=== PATIENT | female | born 1945 | race Caucasian/White ===

== ENCOUNTER → 2020-07-09 09:57 | Outpatient (REF) | payer MEDICARE, OTHER, SELFPAY | LOC: ANHLAB 09:57 | PROVIDERS: PCP Internal Medicine; Visit Provider Nurse Practitioner | DX: L90.5 Scar conditions and fibrosis of skin (principal); L98.499 Non-pressure chronic ulcer of skin of other sites with unspecified severity | CPT/HCPCS: 88305 ==

== ENCOUNTER 2020-08-14 09:12 | Outpatient (CLI) | payer MEDICARE, OTHER, SELFPAY ==
--- NOTE | ~2020-08-14 | CT_ITS ---
EXAMINATION: CT chest wo con EXAM DATE: 08/14/2020 09:56 INDICATION: Solitary pulmonary nodule. TECHNIQUE: Spiral CT of the chest without contrast. Axial, coronal and sagittal images were reviewe d. Coronal maximum intensity pixel images of chest reviewed. The dose-length product (DLP) for this examination was 65.76 mGy-cm. The exposure was tailored according to patient size (auto mA exposure control), and iterative reconstruction (ASIR) was used as additional dose reduction technique. Ba rison is made to prior examination from 11/02/2018. FINDINGS: Scattered bilateral pulmonary nodules, upper lobe predominant stable or slightly smaller i n size, consistent with postinfectious residua. Large prevascular calcification from prior calcified lymphadenopathy. There is severe emphysema and moderate hyperinflation. No new or suspicious pulmonar y nodules. There are no pleural or pericardial effusions. Tracheobronchial tree is patent. There is no mediastinal, hilar or axillary lymphadenopathy. There is no pneumothorax. Heart normal in size. There is moderate coronary arterial calcification, arterial sclerosis. There are cholecystec jorden clips. Liver and splenic granulomas. There is thoracic spondylosis without osteoblastic or oste olytic lesions identified. IMPRESSION: 1. Moderate to severe emphysema. 2. Stable post infectious residua. Reviewed, dictated and finalized at location A.
== END 2020-08-14 09:13 | disposition home or self-care (01) ==
PROVIDERS: PCP Internal Medicine; Visit Provider Nurse Practitioner Family
DX: R91.1 Solitary pulmonary nodule (principal); J43.9 Emphysema, unspecified
CPT/HCPCS: 71250

== ENCOUNTER 2024-08-11 21:12 | Observation (INO) | payer MEDICARE, SELFPAY ==
--- NOTE | ~2024-08-11 | CT_ITS ---
EXAMINATION: CT chest abdomen pelvis w con DATE: 08/11/2024 22:55 INDICATION: increasing cough, N/V . TECHNIQUE: Computed tomography (CT) of the chest, abdomen, and pelvis was performed with 100 mL Omnip aque-350 intravenous contrast. Automated exposure control and iterative reconstruction technique were employed. The dose-length product was 369.00 mGy-cm. COMPARISON: None FINDINGS: CHEST: Thoracic aorta: No significant dilation. No dissection. Moderate arch calcification Lung parenchyma and airways: Innumerable calcified granulomas. Severe emphysematous change with archi tectural distortion and scarring. Subsegmental consolidation in the right medial lung base. Smaller a reas of subsegmental consolidation in the peripheral right and left lower lobes and right middle lobe . Stable focal scarring in the right apex. Patent airways. Thoracic inlet, axillae and chest wall: No thyroid or soft tissue mass. No axillary lymphadenopathy. Mediastinum: Calcified prevascular lymph node. Dilated central pulmonary arteries as can be seen with pulmonary arterial hypertension. Heart and pericardium: Normal heart size. No pericardial effusion. Coronary artery calcifications: Moderate. Pleura: No effusion or mass. Thoracic bones: No acute osseous finding in the chest. ABDOMEN/PELVIS: Liver: Several subcentimeter hypodensities, too small to characterize, likely represent cysts or josephine ngiomas. Biliary/Gallbladder: Gallbladder is absent. No bile duct dilation. Pancreas: No mass or duct dilation. Spleen: Extensive granulomatous calcifications. Adrenals:No mass. Kidneys: No suspicious mass, obstructing stone, or hydronephrosis. GI tract: Moderate distal esophageal and gastric wall edema. No small or large bowel dilation. Normal appendix. Diverticulosis without diverticulitis. Mesentery/Peritoneum: No ascites, mass, or free air. Retroperitoneum: No mass Atherosclerotic abdominal aortic and/or arterial calcifications. Pelvis: Pelvic organs are within normal limits. 1.7 cm simple appearing right ovarian cyst. Soft Tissues: Soft tissues and body wall unremarkable. Abdominopelvic bones: No acute osseous finding in the abdomen/pelvis. IMPRESSION: Scattered subsegmental right middle lobe and bilateral lower lobe airspace opacities, may reflect ate lectasis or infectious/inflammatory foci, overlying a background of severe emphysematous change. The prior chest radiograph findings corresponded to stable granulomas and scarring. Moderate esophagitis/gastritis. Reviewed, dictated and finalized at location K. IMPRESSION: Scattered subsegmental right middle lobe and bilateral lower lobe airspace opac ities, may reflect atelectasis or infectious/inflammatory foci, overlying a gem kground of severe emphysematous change. The prior chest radiograph findings corresponded to stable granulomas and scarr ing. Moderate esophagitis/gastritis.
--- NOTE | ~2024-08-11 | XR_ITS ---
EXAMINATION: XR chest 2V Exam Date/Time: 08/11/2024 22:10 CDT HISTORY: cough, tachycardia Comparison: 08/09/2014. RESULT: Lines, tubes, and devices: Cholecystectomy clips. Lungs and pleura: Irregular 1.7 cm nodular opacity in the right upper lobe. Granulomatous calcificat ion. Emphysematous change Cardiomediastinal silhouette: Stable. Calcified lymph nodes. Other: No acute osseous or upper abdominal finding. IMPRESSION: No acute cardiopulmonary process. Irregular 1.7 cm right upper lobe opacity may represent a pulmonary nodule or focus of infection. Con supervisor cutting department CT of the chest for further evaluation. Reviewed, dictated and finalized at location K. IMPRESSION: No acute cardiopulmonary process. Irregular 1.7 cm right upper lobe opacity may represent a pulmonary nodule or f ocus of infection. Consider CT of the chest for further evaluation.
[2024-08-11 21:10] VITALS: BP 156/70; PULSE 124; RESP 13; TEMP 36.7; O2SAT 92
[2024-08-11 21:19] VITALS: PULSE 124
--- NOTE | 2024-08-11 21:32 | ED.GENADULT ---
HPI - General Adult General Chief complaint: Weakness <Miguel Boone PA-C - Last Filed: 08/12/24 03:25> Stated complaint: weakness,n/v <Miguel Boone PA-C - Last Filed: 08/12/24 03:25> Time Seen by Provider: 08/11/24 21:18 <Miguel Boone PA-C - Last Filed: 08/12/24 03:25> Source: patient <CAPO Santacruz Last Filed: 08/12/24 03:25> Mode of arrival: ambulatory <CAPO Santacruz Last Filed: 08/12/24 03:25> Limitations: no limitations <Miguel Boone PA-C - Last Filed: 08/12/24 03:25> History of Present Illness HPI narrative: This is a 78-year-old female with PMH of COPD, IBS who presents to the ED for chief complaint of generalized weakness and N/V for the past 2-3 hours. Patient reports that she and her family returned from [place] today. She last ate around 4:00 p.m. and had salads with, spaghetti with meat sauce. States that she started to feel ill when she got home and has had several episodes of vomiting. Endorses 1 episode of loose stools but no GI bleeding symptoms. Denies chest pain or shortness of breath. Does endorse some mildly increasing cough recently but no fevers, chills. Does not have any abdominal pain or urinary symptoms. <CAPO Santacruz Last Filed: 08/12/24 03:25> Related Data Home medications: Home Medications Medication Instructions Recorded Confirmed acetaminophen 325 mg tablet 650 mg PO PRN PRN PAIN OR FEVER 08/12/24 08/12/24 (Tylenol) cetirizine 5 mg tablet 5 mg PO QHS PRN ALLERGIES 08/12/24 08/12/24 <CAPO Santacruz Last Filed: 08/12/24 03:25> Allergies/adverse reactions: Allergies Allergy/AdvReac Type Severity Reaction Status Date / Time adhesive tape Allergy Mild SKIN BLEEDS Verified 08/12/24 03:54 codeine Allergy Unknown Other Verified 08/12/24 03:54 montelukast Allergy Unknown Other Verified 08/12/24 03:54 Quinolones Allergy Unknown AVELOX Verified 08/12/24 03:54 Sulfa (Sulfonamide Allergy Unknown Hives Verified 08/12/24 03:54 Antibiotics) <Miguel Boone PA-C - Last Filed: 08/12/24 03:25> Review of Systems Review of Systems: All systems as dictated in HPI <Miguel Boone PA-C - Last Filed: 08/12/24 03:25> [facility] Past Medical History Medical History: Medical History Allergies Asthma <CAPO Santacruz Last Filed: 08/12/24 03:25> Surgical History Surgical History: Surgical History History of adenoidectomy History of tonsillectomy <Miguel Boone PA-C - Last Filed: 08/12/24 03:25> Family History Family History: Family History Father Family history of chronic obstructive pulmonary disease Mother Family history of aortic aneurysm Family history of coronary artery disease Other Family history of heart disease in male family member before age 55 Family history of kidney disease Hypertension <CAPO Santacruz Last Filed: 08/12/24 03:25> Social History Social History: Social History Smoking status: Former smoker Tobacco type: cigarettes Smoking end date: 11/15/02 Alcohol intake: never Substance use: never Substance use type: does not use Do You Feel Safe in your Home?: Yes Lack of Transportation: No Lack of Food: Never True Current Housing: I Have Housing Concerned About Future Housing: No Difficulty Paying Gas/Electric Bills: No Difficulty Paying for Meds: No Currently Unemployed: No Education: Decline to Answer Difficulty w/ Childcare or Family Care: No Occupation/Education: retired Gender identity (if verbalized by the patient): Female Sexual Orientation (if Verbalized by the Patient): Straight or Heterosexual Spiritual care concerns: No <Miguel Boone PA-C - [place] [facility]
--- NOTE | 2024-08-11 21:33 | ECG_ITS ---
Test Date: 2024-08-11 21:17:00 Measurements Intervals [place] Rate: 123 P: 71 IA: 139 QRS: 44 QRSD: 82 T: 78 QT: 337 QTc: 482 Interpretive Statements SINUS TACHYCARDIA LOW QRS VOLTAGE IN PRECORDIAL LEADS NONSPECIFIC ST & T-WAVE ABNORMALITY- DIFFUSE LEADS BASELINE ARTIFACT- I, II, III, AVR, AVL, AVF, V3 ABNORMAL ECG No previous ECG available for comparison Electronically Signed On 08-12-2024 09:15:06 CDT by Kevin To D.O.
[2024-08-11] MEDS: SODIUM CHLORIDE 0.9% IV 1,000 ML 999 ML IV CONT ×2 (21:37→23:03)
[2024-08-11 21:58] LABS: Basophils Absolute Auto 0.1 K/mm3 (0.0-0.1); Basophils Percent Auto 0.4 % (0.2-1.2); Eosinophils Absolute Auto 0.1 K/mm3 (0-0.3); Eosinophils Percent Auto 0.4 % (0-4.4); Hematocrit 41.5 % (37.0-47.0); Hemoglobin 13.5 g/dL (12.0-15.0); Immature Granulocyte Absolute 0.07 K/mm3 (0.00-0.031); Immature Granulocyte Percent A 0.4 % (0-0.5); Lymphocytes Absolute Auto 0.92 K/mm3 (0.9-3.2); Lymphocytes Percent Auto 5.4 % (18.3-44.2); Mean Corpuscular HGB Conc 32.5 g/dl (32-36); Mean Corpuscular Hemoglobin 29.5 pg (26-34); Mean Corpuscular Volume 90.8 fl (80-100); Mean Platelet Volume 9.5 fl (7.4-10.4); Monocytes Absolute Auto 0.9 K/mm3 (0.1-0.6); Monocytes Percent Auto 5.2 % (2.6-8.5); Neutrophils Percent Auto 88.2 % (45.5-73.1); Platelet Count Result 290 k/mm3 (150-375); Red Blood Count 4.57 M/mm3 (4.2-5.4); Red Cell Distribution Width 13.3 % (11.5-14.5)
[2024-08-11 22:10] LABS: INR 0.9; Partial Thromboplastin Time 25.9 Seconds (22.3-36.8); Prothrombin Time 13.1 Seconds (11.1-14.7)
[2024-08-11 22:12] LABS: Lactic Acid Reflex 1.6 mmol/L (0.7-2.0)
[2024-08-11 22:13] LABS: Alanine Aminotransferase 19 U/L (6-35); Albumin Level 4.6 g/dL (3.5-5.1); Alkaline Phosphatase 72 U/L (38-126); Anion Gap 12 mmol/L (4-12); Aspartate Amino Transferase 33 U/L (14-36); Bilirubin,Total 0.9 mg/dL (0.2-1.3); Blood Urea Nitrogen 13 mg/dL (7-17); CRP 1.9 mg/dL (<1.0); Carbon Dioxide 26 mmol/L (22-30); Chloride 102 mmol/L (98-107); Estimated CRCL calculation 53 ml/min; Estimated Glomerular Filt Rate > 60; Glucose 145 mg/dL (65-110); Lipase 166 U/L (23-300); Potassium 3.7 mmol/L (3.4-5.0); Sodium 140 mmol/L (137-145)
[2024-08-11 22:21] LABS: Troponin I < 0.012 ng/mL (0.000-0.034)
[2024-08-11] MEDS: ONDANSETRON INJ 4 MG/2 ML VIAL IV PUSH (22:24)
[2024-08-11 23:07] VITALS: BP 140/62; PULSE 120; RESP 14; O2SAT 94
[2024-08-11 23:13] LABS: Fractional Inspired Oxygen 21 %; HCO3 VBG 25.2 mEq/l (24.0-30.0); PCO2 VBG 42.2 mmHg (42.0-48.0); PO2 VBG 48.4 mmHg (35.0-45.0); pH VBG 7.394 (7.300-7.400)
[2024-08-11 23:14] LABS: Device ROOM AIR
[2024-08-11] MEDS: AZITHROMYCIN 500 MG/NS 250 ML 500 MG/250 ML BAG 250 MG IVPB (23:50)
[2024-08-12] VITALS (15 sets, daily range): BP systolic 118–139; BP diastolic 53–85; PULSE 80–118; RESP 12–23; TEMP 36.5–36.7; O2SAT 92–97; BMI 23.8
[2024-08-12] MEDS: methylPREDNISolone SOD SUCC 125 MG VIAL IV PUSH (00:24)
[2024-08-12 00:50] LABS: Add Urine Microscopic? NO; Appearance Urine Clear (Clear); Bilirubin Urine Negative (Negative); Blood Urine Negative (Negative); Color Urine Yellow (Yellow); Glucose Urine UA Negative (Negative); Ketones Urine Negative (Negative); Leukocyte Esterase Ur Negative LEU/UL (Negative); Nitrate Urine Negative (Negative); Protein Urine Negative (Negative); Specific Grav Ur 1.044 (1.001-1.035); Urobilinogen Urine 0.2 mg/dL (<2.0)
[2024-08-12] MEDS: IPRATROPIUM 0.5 MG/ALBUTEROL SULFATE 2.5 MG AMPUL.NEB 3 ML INHALATION (02:29)
[2024-08-12] MEDS: PANTOPRAZOLE SODIUM IV 40 MG VIAL IV PUSH (02:44)
--- NOTE | 2024-08-12 02:59 | PC.NURSE ---
Attempted to call report and was told RN needs to call back
--- NOTE | 2024-08-12 03:42 | ADMGEN ---
This patient, Edwina Mckeon, was admitted to Medical Room 348-. Patient/family oriented to hospital policies and general routines including ID bracelet, bed and alarms, visiting hours, pain management, procedures, bathroom and other care routines, personal items, smoking policy, room service/diet, and visiting hours. Information on how to activate the Rapid Response Team has been discussed. Patient/Family are encouraged to report perceived risks to care and to ask questions if they do not understand what they are told or what they should do.
[2024-08-12] MEDS: SODIUM CHLORIDE 0.9% IV 1,000 ML 100 ML IV CONT (04:18)
--- NOTE | 2024-08-12 09:38 | PM.IMHP ---
H&P: HPI History of Present Illness Date/Time: 08/12/24 09:38 Chief Complaint: weakness Narrative: This is a 78-year-old female with PMH of COPD, IBS who presents to the ED for chief complaint of generalized weakness and N/V that started shortly after her trip to [place]. She last ate around 4:00 p.m. and had salads with, spaghetti with meat sauce. States that she started to feel ill when she got home and has had several episodes of vomiting. Endorses 1 episode of loose stools but no GI bleeding symptoms. Denies chest pain or shortness of breath. Does endorse some mildly increasing cough recently but no fevers, chills. Does not have any abdominal pain or urinary symptoms. In ED: [id number]. Saturating 92% on room air with history of emphysema. VBG unremarkable. CMP unremarkable. CRP slightly elevated 1.9. Lactic acid -normal and troponin -normal. Urine specific gravity is high but no UTI. Blood cultures were drawn and CPAP antibiotics were started due to concerning finding on chest x-ray for possible pneumonia. 08/12- pt is seen and examined. she reports that Her recently was diagnosed with Covid. She never was tested for it. She does not smoke, drinks alcohol very seldom. She just got a new PCP but was not seen. She is following with her pulm. on a regular basis. She reports that she has a small hernia and on occacion has these episodes when she feels like food gets stuck- but it usually subsides with few sips of water. She will try to get GI once discharged. Review of Systems Constitutional: Constitutional: Denies chills Eyes: Eyes: Denies blurry vision Cardiovascular: Cardiovascular: Denies chest pain Respiratory: Respiratory: Reports chest congestion, Reports cough and Reports dyspnea Comments: all improved today Gastrointestinal: Gastrointestinal: Reports nausea and Reports vomiting Comments: better today Musculoskeletal: Musculoskeletal: Denies back pain and Denies myalgias Neurologic: Denies headache(s) Psychiatric: Psychiatric: Denies anxiety and Denies confusion PMF Past Medical History Medical History Allergies Asthma Surgical History Surgical History History of adenoidectomy History of tonsillectomy Family History Family History Father Family history of chronic obstructive pulmonary disease Mother Family history of aortic aneurysm Family history of coronary artery disease Other Family history of heart disease in male family member before age 55 Family history of kidney disease Hypertension Social History Social History Smoking status: Former smoker Tobacco type: cigarettes Smoking end date: 11/15/02 Alcohol intake: never Substance use: never Substance use type: does not use Do You Feel Safe in your Home?: Yes Lack of Transportation: No Lack of Food: Never True Current Housing: I Have Housing Concerned About Future Housing: No Difficulty Paying Gas/Electric Bills: No Difficulty Paying for Meds: No Currently Unemployed: No Education: Decline to Answer Difficulty w/ Childcare or Family Care: No Occupation/Education: retired Gender identity (if verbalized by the patient): Female Sexual Orientation (if Verbalized by the Patient): Straight or Heterosexual Spiritual care concerns: No Meds Home Medications and Allergies Home Medications Medication Instructions Recorded Confirmed Type fluticasone furoate 100 See Rx Instructions .Route 07/12/24 08/12/24 Rx mcg/actuation blister powder for .COMPLEX #90 ea inhalation (Arnuity Ellipta) acetaminophen 325 mg tablet 650 mg PO PRN PRN PAIN OR FEVER 08/12/24 08/12/24 History (Tylenol) cetirizine 5 mg tablet 5 mg PO QHS P
[2024-08-12 14:22] LABS: Influenza A QL RT-PCR Negative (Negative); Influenza B QL RT-PCR Negative (Negative); RSV RNA, RT-PCR Negative (Negative); SARS-CoV-2 RNA PCR Negative (Negative)
[2024-08-12] MEDS: AZITHROMYCIN 500 MG/NS 250 ML 500 MG/250 ML BAG 250 MG IVPB (21:37)
[2024-08-13] VITALS: PULSE 80
[2024-08-13 04:00] VITALS: PULSE 84
[2024-08-13 04:13] VITALS: BP 123/58; PULSE 88; RESP 16; TEMP 36.9; O2SAT 93
[2024-08-13 08:51] LABS: Hematocrit 36.1 % (37.0-47.0); Hemoglobin 11.3 g/dL (12.0-15.0); Mean Corpuscular HGB Conc 31.3 g/dl (32-36); Mean Corpuscular Hemoglobin 29.3 pg (26-34); Mean Corpuscular Volume 93.5 fl (80-100); Mean Platelet Volume 9.3 fl (7.4-10.4); Platelet Count Result 266 k/mm3 (150-375); Red Blood Count 3.86 M/mm3 (4.2-5.4); White Blood Count 17.5 K/mm3 (4.5-10.0)
[2024-08-13 09:01] LABS: Anion Gap 7 mmol/L (4-12); Blood Urea Nitrogen 8 mg/dL (7-17); Calcium 8.4 mg/dL (8.4-10.2); Carbon Dioxide 27 mmol/L (22-30); Chloride 105 mmol/L (98-107); Estimated CRCL calculation 61 ml/min; Estimated Glomerular Filt Rate > 60; Glucose 102 mg/dL (65-110); Potassium 3.6 mmol/L (3.4-5.0); Sodium 139 mmol/L (137-145)
--- NOTE | 2024-08-13 12:32 | PM.DS ---
DS: Admitting Diagnosis Discharge Date 08/13 Admitting Diagnosis n/v DS: Discharge Diagnosis Discharge Diagnosis (1) Pneumonia: Code(s): J18.9 - Pneumonia, unspecified organism Status: Acute Assessment and Plan: - azithro, ceftriaxone-started in ed- will continue - duonebs prn - steroids in ed - blood cultures obtained - continue IS - since positive covif for will check fir covid, flu and rsv here-ordered (2) Gastritis: Code(s): K29.70 - Gastritis, unspecified, without bleeding Status: Acute Assessment and Plan: - supportive care for now - antiemetics prn - if inadequate oral intake- will supplement with iV - improved DS: Summary Hospital Course Hospital Course: This is a 78-year-old female with PMH of COPD, IBS who presents to the ED for chief complaint of generalized weakness and N/V that started shortly after her trip to [place]. In ED: [id number]. Saturating 92% on room air with history of emphysema. VBG unremarkable. CMP unremarkable. CRP slightly elevated 1.9. Lactic acid -normal and troponin -normal. Urine specific gravity is high but no UTI. Blood cultures were drawn and CPAP antibiotics were started due to concerning finding on chest x-ray for possible pneumonia. Her recently was diagnosed with Covid. She was tested for Covid, flu, rsv- all negative. her WBC remained elevated and she knows to f/ u within a week to get it rechecked. She was discharged with antibiotics to complete the course and instructions to f/u with pulm as her maintenance inhaler do0se was recently decreased and that could be the reason she is getting a little more sob and her o2 drops. Status at Discharge Functional status at discharge: independent ambulation Overall status at discharge: patient is progressing back to baseline Time Spent with Patient Time attestation: Total time spent providing and/or coordinating discharge services: Time spent: Greater than 30 minutes Exam Const: General: No confusion Orientation/consciousness: No confusion Cardio: Rate: regular rate Rhythm: regular rhythm Neuro: General: gait normal and No confusion Extrem: General: normal to inspection Psych: Mental Status: mental status grossly normal Affect: normal affect DS: Data Data Completed and Pending Completed studies during hospitalization: chest xray Labs on day of discharge: Labs from last 24 hours 08/13/24 08/12/24 08:42 13:40 WBC 17.5 H RBC 3.86 L Hgb 11.3 L Hct 36.1 L MCV 93.5 MCH 29.3 MCHC 31.3 L RDW 14.0 Plt Count 266 MPV 9.3 Sodium 139 Potassium 3.6 Chloride 105 Carbon Dioxide 27 Anion Gap 7 BUN 8 D Creatinine 0.60 L Estim Creat Clear Calc 61 Estimated GFR > 60 Glucose 102 Calcium 8.4 Influenza A (RT-PCR) Negative Influenza B (RT-PCR) Negative RSV (RT-PCR) Negative SARS-CoV-2 RNA (RT-PCR) Negative Preliminary micro results at discharge 08/11/24 21:56 Blood Culture - Preliminary Blood 08/11/24 21:56 Blood Culture - Preliminary Blood Discharge Plan Discharge Discharging Clinician: Connie Castaneda Patient Disposition: Home, Self-Care Activity: march shower Diet: as tolerated and regular Discharge Instructions: You were admitted for pneumonia. YOu were given two different antibiotics- please continue to take those until finished the course. Follow up with pulm as we discussed to ensure your inhaler regimen is working well for you. Please f/u with PCP for lab (CBC) recheck, as when you were discharged, it was still elevated (17.5) Patient Instructions: Antibiotic Form Stand Alone Forms: General Discharge Information Follow-up/Referrals: Debby Alvarez MD [Primary Care Provider] - 1 Week (please f/u with pcp to get cbc rechecked) Discharge Medications: New amoxicillin-pot clavulanate 875-125 mg tablet 1 tablet PO Q12H Qty: 6 0RF azithromycin [Zithromax] 500 mg tablet
== END 2024-08-13 14:13 | disposition home or self-care (01) ==
LOC: ANHED 08-12 02:15 → ANH3MED 08-12 02:48
PROVIDERS: Nurse Practitioner; Student in an Organized Health Care Education/Training Program; Admitting Provider Internal Medicine; Emergency Provider Physician Assistant; PCP Family Medicine; Visit Provider Internal Medicine
DX: J44.0 Chronic obstructive pulmonary disease with (acute) lower respiratory infection (principal); J18.9 Pneumonia, unspecified organism; J43.9 Emphysema, unspecified; K29.70 Gastritis, unspecified, without bleeding; K58.9 Irritable bowel syndrome, unspecified; Z20.822 Contact with and (suspected) exposure to COVID-19; Z87.891 Personal history of nicotine dependence
CPT/HCPCS: 36415; 71046; 71260; 74177; 80048; 80053; 81003; 82803; 83605; 83690; 84484; 85025; 85027; 85610; 85730; 86140; 87040; 87637; 93005; 94640; 96361; 96365; 96366; 96367; 96375; 99285; G0378; J0456; J0696; J2405; J2470; J2919; J7030; Q9967

== ENCOUNTER 2025-06-27 15:37 | Emergency (ER) | payer MEDICARE, SELFPAY ==
--- NOTE | ~2025-06-27 | XR_ITS ---
EXAMINATION: XR ankle RT min 3V DATE: 06/27/2025 15:58 INDICATION: Right ankle injury with pain TECHNIQUE: Anteroposterior, oblique, mortise, and lateral views of the right ankle were obtained. COMPARISON: None. FINDINGS: Nondisplaced transverse fracture across the lateral malleolus which extend to the medial cortex 9 mm caudal to the level of the tibiotalar joint line. No significant fracture gap or incongruity along th e fibular articular surface. There is an additional nondisplaced fracture at the base of the fifth me tatarsal. Alignment remains essentially anatomic. No other fractures identified. Joint spaces are nor mal. Soft tissue swelling anterior to the ankle and about the lateral malleolus. No evident ankle luisana nt effusion. There is splinting material about the ankle. IMPRESSION: 1. Nondisplaced fractures of the lateral malleolus and base of the fifth metatarsal. Reviewed, dictated and finalized at location A. IMPRESSION: 1. Nondisplaced fractures of the lateral malleolus and base of the fifth metata rsal.
[2025-06-27 15:38] VITALS: BP 114/99; PULSE 88; RESP 16; TEMP 36.5; O2SAT 97
--- NOTE | 2025-06-27 16:09 | ED.LOWEXIN ---
HPI - Extremity Injury (Lower) General Chief Complaint: Extremity Injury, Lower Stated Complaint: dislocated ankle Time Seen by Provider: 06/27/25 15:51 History of Present Illness HPI Narrative: This is a 79-year-old female with history of COPD who presents to the ED for ankle pain. Patient states she was getting out of her car when her ankle gave out from under her and everted. She fell to the ground but did not hit her head. Loss consciousness. She has had right ankle pain since then. Denies numbness, tingling. Related Data Home Medications ?Medication ?Instructions ?Recorded ?Confirmed ?Last Taken ?Type acetaminophen 325 mg tablet 650 mg PO PRN PRN PAIN OR FEVER 08/12/24 01/19/25 Unknown History (Tylenol) cetirizine 5 mg tablet 5 mg PO QHS PRN ALLERGIES 06/12/25 Unknown History Allergies Allergy/AdvReac Type Severity Reaction Status Date / Time adhesive tape Allergy Mild SKIN BLEEDS Verified 06/27/25 15:44 codeine Allergy Unknown Other Verified 06/27/25 15:44 montelukast Allergy Unknown Other Verified 06/27/25 15:44 Quinolones Allergy Unknown AVELOX Verified 06/27/25 15:44 Sulfa (Sulfonamide Allergy Unknown Hives Verified 06/27/25 15:44 Antibiotics) ezetimibe (From Zetia) AdvReac Intermediate incontinence Verified 06/27/25 15:44 of bowels [id number] Reductase AdvReac Intermediate myalgia, Verified 06/27/25 15:44 Inhibitor UTI, chills Review of Systems Review of Systems: Gen.: Denies fevers or chills Eyes: Denies eye pain or visual change ENT: Denies congestion Respiratory: Denies shortness of breath or cough CV: Denies chest pain or palpitations GI: Denies abdominal pain nausea, emesis or diarrhea denies burning, urgency, frequency or hematuria Musculoskeletal: Right ankle pain. Denies back pain or muscle pain Neuro: Denies numbness, tingling, weakness or focal weakness Skin: Denies rash Except as documented, all other systems reviewed and negative PMF Past Medical History Medical History Asthma Allergies Surgical History Surgical History History of tonsillectomy History of adenoidectomy Family History Family History Father Family history of chronic obstructive pulmonary disease Mother Family history of aortic aneurysm Family history of coronary artery disease Other Family history of heart disease in male family member before age 55 Family history of kidney disease Hypertension Social History Social History Smoking status: Former smoker (quit about 25 years ago) Tobacco type: cigarettes Smoking end date: 11/15/02 Alcohol intake: never Substance use: never Substance use type: does not use Do You Feel Safe in your Home?: Yes Lack of Transportation: No Lack of Food: Never True Current Housing: I Have Housing Concerned About Future Housing: No Difficulty Paying Gas/Electric Bills: No Difficulty Paying for Meds: No Currently Unemployed: No Education: Decline to Answer Difficulty w/ Childcare or Family Care: No Occupation/Education: retired Gender identity (if verbalized by the patient): Female Sexual Orientation (if Verbalized by the Patient): Straight or Heterosexual Spiritual care concerns: No Exam Narrative: APPEARANCE: No acute distress, nontoxic, resting in bed EYES: EOMI HEENT: Normocephalic, atraumatic, OMM RESPIRATORY: No respiratory distress Clear to auscultation bilaterally with no rhonchi wheezing or rales. CARDIOVASCULAR: Regular rate and rhythm without murmurs rubs or gallops. ABDOMINAL: Soft, nontender, nondistended, no rebound or guarding MUSCULOSKELETAl: TTP over the right lateral malleolus. No ttp over the right fifth metatarsal. Moves all extremities. No clubbing, cyanosis or edema. NEURO: Awake and alert. Following commands, speech normal, no focal deficits SKIN:: Warm, dry. No rashes lesions or abrasions PSYCHIATRIC: Normal affect/mood, Course Vital Signs Vital signs: Vital Signs Temperature 97.7 F 06/27/25 15:38 Pulse Rate 88 06/27/25 15:38 Respiratory Rate 16 06/27/25 15:38 Blood Pressure 114/99 H 06/27/25 15:38 Pulse Oximetry 97 06/27/25 15:38 Oxygen Delivery Room Air 06/27/25 15:38 Temperature 97.7 F 06/27/25 15:38 Pulse Rate 80 06/27/25 18:01 Respiratory Rate 15 06/27/25 18:01 Blood Pressure 128/69 06/27/25 18:01 Pulse Oximetry 99 06/27/25 18:01 Oxygen Delivery Room Air 06/27/25 15:38 MDM - Extremity Injury (Lower) MDM Narrative Medical decision making narrative: 79-year-old female presenting to the ED for ankle injury. Patient was in a temporary immobilizer. She had tenderness over the posterior aspect of the right lateral malleolus. X-ray was obtained and did show a distal fibular fracture. Patient was placed in a posterior short-leg splint. She was given a referral to Orthopedic surgery for further evaluation. Patient was agreeable to plan. Given strict return precautions. Differential Diagnosis Differential diagnosis: Likely ankle sprain and strain and ankle fracture Discharge Plan Discharge Clinical Impression: Fracture of distal end of fibula Qualifiers: Encounter type: initial encounter Fracture type: closed Fracture morphology: unspecified fracture morphology Laterality: right Qualified Code(s): S82.831A - Other fracture of upper and lower end of right fibula, initial encounter for closed fracture Patient Disposition: Home Condition: Stable Instructions: Antibiotic Form, Ankle Fracture (ED), P.R.I.C.E. Treatment (ED) Patient Language: Portuguese Prescriptions: No Action acetaminophen [Tylenol] 325 mg Tablet 650 mg PO PRN PRN (Reason: PAIN OR FEVER) cetirizine 5 mg tablet 5 mg PO QHS PRN (Reason: ALLERGIES) Arnuity Ellipta 100 mcg/actuation blister with device See Rx Instructions .ROUTE .COMPLEX Qty: 90 3RF Dose Instruction: USE 1 INHALATION BY MOUTH EVERY 24 HOURS RINSE AND SPIT AFTER Rx Instructions: USE 1 INHALATION BY MOUTH EVERY 24 HOURS RINSE AND SPIT AFTER albuterol sulfate 90 mcg/actuation HFA aerosol inhaler 1 - 2 inh inhalation Q4-6H PRN (Reason: shortness of breath or wheezing) Qty: 8.5 2RF Follow-up/Referrals: Debby Alvarez MD [Primary Care Provider] - Jeremy Edwards MD [Physician] -
--- OUTSIDE RECORDS SUMMARY | 2025-06-27 16:48 | XMS_ITS | Clinical Summary ---
Author Organization [facility] [employer] Address [address] [place] [address] Care Team Providers Care Building Trades Instructor Name Role Phone James Garcia MD Primary Care Provider [phone] Source Comments [facility] [employer],non-owned Affiliates and Associated Physician Practices is amultiple site organization consisting of ambulatory clinics and hospital sitesin [place], [place], [place] and [place]. This disclosure is being madepursuant to the Care Everywhere program and may not contain all information available regarding this patient. Last updated 18.[facility] [employer] Allergies Active Allergy Reactions Criticality Noted Date Comments Sulfa Drugs 09/28/2017 Medications * Be aware that medications may not be up to date on this document. Alwaysverify current medications with the patient. 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 Gender Identity Not on file Sexual Orientation Not on file Last Filed Vital Signs Vital Sign Reading Time Taken Comments Blood Pressure 122/76 06/09/2018 9:47 AM CDT Pulse 84 09/28/2017 9:37 AM FLAT FINISHER Temperature 36.6 C (97.9 F) 06/09/2018 9:47 AM CDT Respiratory Rate 16 06/09/2018 9:47 AM CDT Oxygen Saturation 98% 09/28/2017 9:37 AM FLAT FINISHER Inhaled Oxygen Concentration - - Weight 68 kg (150 lb) 06/09/2018 9:47 AM CDT Height 165.1 cm (5' 5) 06/09/2018 9:47 AM CDT Body Mass Index 24.96 06/09/2018 9:47 AM CDT Plan of Treatment Health Maintenance Due Date Last Done Comments BONE DENSITY TESTING 1945 HEPATITIS C SCREENING 11/07/1965 DTAP/TDAP/TD VACCINES (1 - Tdap) 1966 PNEUMOCOCCAL VACCINE 50+ (1 of 1 - PCV) 1997 ZOSTER VACCINE (1 of 2) 1997 Respiratory Syncytial Virus (RSV) Vaccine Pt: or over 60 yrs (1 - 1-dose 75+ series) 2022 COVID-19 VACCINE (1 - 2023-2 5 season) 2024 DEPRESSION SCREENING 11/15/2024 INFLUENZA VACCINE (#1) 2025 HEPATITIS B VACCINE Aged Out No longe r eligible based on patient's age to complete this topic HIB VACCINE Aged Out No longer eligi ble based on patient's age to complete this topic HPV VACCINE Aged Out No longer eligi ble based on patient's age to complete this topic MENINGOCOCCAL (Group B) VACC INE SHARED DECISION-MAKING Aged Out No longer eligibl e based on patient's age to complete this topic MENINGOCOCCAL GROUPS A/C/Y/W VACCINE Aged Out No longer eligible b ased on patient's age to complete this topic Insurance MEDICARE [facility] MEDICARE Care Teams Building Trades Instructor Relationship Specialty Start Date End Date James Garcia MD [address] [place] [address] PCP - General 07/11/20
--- OUTSIDE RECORDS SUMMARY | 2025-06-27 16:48 | XMS_ITS | Continuity of Care Document ---
Author Organization [facility] Address [address] [place] [address] Phone Care Team Providers Care Clinical Exercise Specialist Name Role Phone Darrell Parra Unavailable Unavailable Procedures Procedure Date Post-op Follow-up Visit Post-op Follow-up Visit Post-op Follow-up Visit Remove Cataract, Insert Lens Astigmatism Correcting Toric IOL 2007 [facility] Exam & Treatment Advance Directives Directive Yes / No Effective Date File Name No Information Encounters Encounter Description Practice Location Reason(s) For Visit Diagnoses Date Provider Providers Copied on Encounter [facility], [address] [place] [address] [address], [place], [place], [id number], [place] tel:[phone] [facility] [place] [facility] [place] No Information [address] Krish[address]amy Darrell. [address] [facility] [address], [place], [place], [facility], [place]. tel:[phone] [facility], [address] [place] [address] [address], [place], [place], [id number], [place] tel:[phone] [facility] [place] [facility] [place] No Information 2-[address] Krishnasamy Darrell. [address] [facility] [address], [place], [address], [place]. tel:[phone] [facility], [address] [place] [address] [address], [place], [place], [id number], [place] tel:[phone] [facility] No Information 5-[address] Krishnas[address] Darrell. [facility] [address], [place], [facility], . tel:[phone] [facility], [address] [facility] [address], [place], [place], [id number], tel:[phone] [facility] No Information 4-[address] Krish[address] Darrell. [address] [facility] [address], [place], [facility], [place]. tel:[phone] [facility], [address] [facility] [address], [place], [place], [id number], tel:[phone] [facility] No Information 0 2-[address] Krishnasamy Darrell. [address] [place], [place] [address] [address], [place], [facility], [place]. tel:[phone] Referring Provider: Darrell abel, [address] [place], [place] [address] [address], [place], [facility]. tel:[phone] [facility], [address] [facility] [place] [address], [place], [place], [id number], tel:[phone] [facility] No Information 0-[address] Krishnasamy Darrell. [address] [place] [address], [facility], [place]. tel:[phone] Family History Family Member Type Diagnosis Age At Onset No Information Payers Payer name Insurance type Covered libertarian ID Authoriza tion(s) No Information Social History Type Description Quantity Date Captured Comments Sex Female Smoking Status No Information Chief Complaint And Reason For Visit No Information Reason For Referral Reason For Referral No Information History Of Present Illness Encounter Date Complaint History Of Prese nt Illness No Information Functional Status Date Functional Assessmen t No Information Instructions Date Instruction Additional Infor mation No Information Assessments Type Assessment Date No Information Patient Care Teams Name Effective Dates (start - stop) Status Members No Information
[2025-06-27 17:02] VITALS: BP 134/74; PULSE 75; RESP 18; O2SAT 97
[2025-06-27] MEDS: KETOROLAC 30 MG/ML VIAL (*BKC) IM (17:03)
[2025-06-27 18:01] VITALS: BP 128/69; PULSE 80; RESP 15; O2SAT 99
== END 2025-06-27 18:02 | disposition home or self-care (01) ==
LOC: ANHED 16:45
PROVIDERS: Emergency Provider Student in an Organized Health Care Education/Training Program; PCP Family Medicine
DX: S82.831A Other fracture of upper and lower end of right fibula, initial encounter for closed fracture (principal); W18.30XA Fall on same level, unspecified, initial encounter; J44.9 Chronic obstructive pulmonary disease, unspecified; J45.909 Unspecified asthma, uncomplicated; Z87.891 Personal history of nicotine dependence
CPT/HCPCS: 29515; 73610; 96372; 99284; J1885

== ENCOUNTER 2025-10-18 08:42 | Outpatient (CLI) | payer MEDICARE, SELFPAY ==
--- NOTE | ~2025-10-18 | DEXA_ITS ---
Bone Density Report Name: JHONATHAN HOLDER Age: 79 Sex: Female Ethnicity: White Date of : 1945 Indication: postmenopausal; screening for osteoporosis; Referring Provider: MELYSSA PATRICIA Study: Bone densitometry was performed. Exam Date: October 18, 2025 Accession number: [id number] Bone Density: Region BMD T-score Z-score Classification AP Spine(L1-L4) 0.976 -0.6 1.9 Normal Femoral Neck (Left) 0.658 -1.7 0.5 Osteopenia Total Hip (Left) 0.727 -1.8 0.2 Osteopenia Femoral Neck (Right) 0.608 -2.2 0.0 Osteopenia Total Hip (Right) 0.676 -2.2 -0.2 Osteopenia Total Hip Mean 0.702 -2.0 0.0 Osteopenia World Health Organization criteria for BMD impression classify patients as: Normal (T-score at or above -1.0), Osteopenia (T-score between -1.0 and -2.5), or Osteoporosis (T-score at or below -2.5). 10-year Fracture Risk(1): Major Osteoporotic Fracture 15% Hip Fracture 4.6% Reported Risk Factors: [place] (), Neck BMD=0.608, BMI=24.5 (1) FRAX(R) Version 3.08. Fracture probability calculated for an untreated patient. Fracture probability may be lower if the patient has received treatment. Impression: The patient has low bone mass, based on the Right Total Hip T-score. The patient has an estimated ten-year risk of hip fracture of 4.6% and an estimated ten-year risk of major fracture of 15%, based on the WHO FRAX algorithm. Discussion: BONE DENSITY IS LOW AT ONE OR MORE SKELETAL SITES. THE PATIENT'S BMD AND CLINICAL RISK FACTORS CONTRIBUTE TO THIS PATIENT'S INCREASED RISK OF FRACTURE. This patient's lowest T-score is low at one or more skeletal sites. It meets the World Health Organization's (WHO) criteria for ?low bone mass? (T-score between -1.0 and -2.5). The patient's 10-year risk of hip fracture as calculated by FRAX exceeds the threshold where pharmacological therapy is recommended by the National Osteoporosis Foundation (NOF). However, all treatment decisions require clinical judgment and consideration of individual patient factors, including patient preferences, comorbidities, previous drug use, risk factors not captured in the FRAX model (e.g., frailty, falls, vitamin D deficiency, increased bone turnover, interval significant decline in bone density) and possible under or overestimation of fracture risk by FRAX. The patient should follow a healthful lifestyle (good nutrition with adequate calcium and vitamin D, and appropriate weight-bearing exercise). Follow-Up: Consider a repeat BMD and Vertebral Fracture Assessment (VFA) exam in 2 years or sooner if medically necessary, to reassess this patient's status. Reported by: LAURA on 10/18/2025 9:33:00 AM. Reviewed, dictated and finalized at location A.
--- NOTE | ~2025-10-18 | MM_ITS ---
EXAMINATION: MM screening abe BI w ti HISTORY: Screening. TECHNIQUE: Craniocaudal and mediolateral oblique 3-D tomosynthesis images were obtained and synthetic 2-D images were generated. CAD analysis was submitted and interpreted. COMPARISON: None available. BREAST PARENCHYMAL COMPOSITION: Not Dense: There are scattered areas of fibroglandular FINDINGS: No suspicious masses are seen. There are no suspicious calcifications. No unexplained architectural distortion is seen. There are no skin or nipple abnormalities identified. There is no adenopathy seen on the images submitted. IMPRESSION: No mammographic evidence to suggest malignancy is seen. The patient may return to screening mammography as per ACR guidelines. BI-RADS 1 - Negative. Reviewed, dictated and finalized at location C. SA[facility]
--- OUTSIDE RECORDS SUMMARY | 2025-10-18 09:07 | XMS_ITS | Clinical Summary ---
Author Organization [facility] Address [address] [place] [address] Care Team Providers Care Ditch Cleaner Name Role Phone James Garcia MD Primary Care Provider [phone] Source Comments [facility],non-owned Affiliates and Associated Physician Practices is amultiple site organization consisting of ambulatory clinics and hospital sitesin [place], [place], [place] and [place]. This disclosure is being madepursuant to the Care Everywhere program and may not contain all information available regarding this patient. 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 Gender Identity Not on file Sexual Orientation Not on file Last Filed Vital Signs Vital Sign Reading Time Taken Comments Blood Pressure 122/76 06/09/2018 9:47 AM CDT Pulse 84 09/28/2017 9:37 AM LABOR ARBITRATOR Temperature 36.6 C (97.9 F) 06/09/2018 9:47 AM CDT Respiratory Rate 16 06/09/2018 9:47 AM CDT Oxygen Saturation 98% 09/28/2017 9:37 AM LABOR ARBITRATOR Inhaled Oxygen Concentration - - Weight 68 [...] yrs (1 - 1-dose 75+ series) 2022 DEPRESSION SCREENING 11/15/2024 COVID-19 VACCINE (1 - 2024-2 6 season) 2025 INFLUENZA VACCINE (#1) 2025 HEPATITIS B VACCINE [...] age to complete this topic Insurance MEDICARE [facility] MEDICARE Care Teams Ditch Cleaner Relationship Specialty Start Date End Date James Garcia MD [address] [place] [address] PCP - General 07/11/20
== END 2025-10-18 08:43 | disposition home or self-care (01) ==
PROVIDERS: PCP Family Medicine; Visit Provider Student in an Organized Health Care Education/Training Program
DX: Z12.31 Encounter for screening mammogram for malignant neoplasm of breast (principal); Z78.0 Asymptomatic menopausal state; M85.852 Other specified disorders of bone density and structure, left thigh; M85.851 Other specified disorders of bone density and structure, right thigh
CPT/HCPCS: 77063; 77067; 77080